=== PATIENT | male | born 1950 | race Caucasian/White ===

== ENCOUNTER 2024-06-28 09:30 | Outpatient (CLI) | payer MEDICARE, OTHER ==
[2024-06-28 10:00] LABS: BASOPHILS % (AUTO) 0.5 % (0-1); EOSINOPHILS # (AUTO) 0.2 X10'3 (0-0.9); EOSINOPHILS % (AUTO) 3.6 % (0-6); HEMATOCRIT 46.4 % (42.0-52.0); HEMOGLOBIN 15.6 g/dl (14.0-17.9); LYMPHOCYTES # (AUTO) 1.6 X10'3 (1.1-4.8); LYMPHOCYTES % (AUTO) 30.6 % (21-51); MEAN CORPUSCULAR HEMOGLOBIN 32.1 PG (27.0-31.0); MEAN CORPUSCULAR HGB CONC 33.6 g/dL (33.0-36.5); MEAN CORPUSCULAR VOLUME 95.3 FL (78-98); MEAN PLATELET VOLUME 7.9 FL (7.4-10.4); MONOCYTES # (AUTO) 0.5 X10'3 (0-0.9); NEUTROPHILS # (AUTO) 2.8 X10'3 (1.8-7.7); NEUTROPHILS % (AUTO) 55.3 % (42-75); PLATELET COUNT 204 X10'3 (140-440); RED BLOOD COUNT 4.87 X10'6 (4.70-6.10); RED CELL DISTRIBUTION WIDTH 13.7 % (11.5-14.5); WHITE BLOOD COUNT 5.1 X10'3 (4.5-11.0)
[2024-06-28 10:15] LABS: APTT 24 SECONDS (22-32); PROTHROMBIN TIME 10.8 SECONDS (9.0-12.0)
[2024-06-28 10:23] LABS: ALANINE AMINOTRANSFERASE 55 U/L (12-78); ALBUMIN 3.8 G/DL (3.4-5.0); ALBUMIN/GLOBULIN RATIO 1.1 (1.1-1.5); ALKALINE PHOSPHATASE 27 IU/L (46-116); ANION GAP 8 (8-16); ASPARTATE AMINO TRANSFERASE 34 U/L (10-37); BILIRUBIN,TOTAL 0.4 MG/DL (0.1-1.0); BLOOD UREA NITROGEN 13 MG/DL (7-18); BUN/CREATININE RATIO 13.1 (10.0-20.0); CALCIUM 9.2 MG/DL (8.5-10.1); CHLORIDE 105 MMOL/L (99-107); CREATININE 0.99 MG/DL (0.60-1.10); GLUCOSE 121 MG/DL (70-104); PRO BRAIN NATRIURETIC PEPTIDE 200 PG/ML (0-125); SODIUM 141 MMOL/L (135-145); TOTAL CARBON DIOXIDE 27.7 MMOL/L (24-32); TOTAL PROTEIN 7.4 G/DL (6.4-8.2); eGFR 74 ML/MIN
[2024-06-28 10:29] LABS: POTASSIUM 4.3 MMOL/L (3.5-5.1)
[2024-06-28] MEDS ORDERED: IODIXANOL 320 MG/ML INFUS..BTL 100ML IV ONE (10:42)
== END 2024-06-28 23:59 | disposition home or self-care (01) ==
LOC: RAD 09:30
PROVIDERS: ATTEND Internal Medicine Cardiovascular Disease
DX: Z01.818 Encounter for other preprocedural examination (principal); S22.42XA Multiple fractures of ribs, left side, initial encounter for closed fracture; I35.0 Nonrheumatic aortic (valve) stenosis; I65.29 Occlusion and stenosis of unspecified carotid artery; I10 Essential (primary) hypertension; E78.5 Hyperlipidemia, unspecified; I70.0 Atherosclerosis of aorta; G95.89 Other specified diseases of spinal cord; M47.816 Spondylosis without myelopathy or radiculopathy, lumbar region; K57.30 Diverticulosis of large intestine without perforation or abscess without bleeding; K76.89 Other specified diseases of liver; R06.02 Shortness of breath; X58.XXXA Exposure to other specified factors, initial encounter; Y93.89 Activity, other specified; Y92.89 Other specified places as the place of occurrence of the external cause; Y99.8 Other external cause status
CPT/HCPCS: 36415; 71046; 71275; 74174; 75572; 80053; 83880; 85025; 85610; 85730; 93880; Q9967